=== PATIENT | male | born 1970 | race Caucasian/White ===

== ENCOUNTER 2020-11-19 11:01 | Outpatient (CLI) | payer BC ==
[2020-11-19 19:46] LABS: SARS-CoV-2 PCR by NAA Not Detected (NotDetected)
== END 2020-11-19 11:02 | disposition home or self-care (01) ==
LOC: LABBT 11:01
PROVIDERS: ATTEND Neurological Surgery
DX: Z01.812 Encounter for preprocedural laboratory examination (principal); M43.16 Spondylolisthesis, lumbar region; Z20.822 Contact with and (suspected) exposure to COVID-19
CPT/HCPCS: 87635; U0003; U0005

== ENCOUNTER 2020-11-24 07:03 | Day surgery (SDC) | payer BC ==
[2020-11-20 11:33] VITALS: BMI 24.4
[2020-11-24] MEDS ORDERED: EPINEPHrine 1 MG/ML AMP ONE (08:56)
[2020-11-24] MEDS ORDERED: Bupivacaine PF 0.5% 30 ML VIAL ONE (08:56)
[2020-11-24] MEDS ORDERED: Fentanyl 100 MCG/2 ML VIAL ONE ×3 (08:57→13:55)
[2020-11-24] MEDS ORDERED: HYDROmorphone 0.5 MG/0.5 ML SYRINGE ONE (08:58)
[2020-11-24] MEDS ORDERED: Ketamine 50 MG/ML (10ML VIAL) ONE (08:58)
[2020-11-24] MEDS ORDERED: Midazolam HCl 2 mg/2 ml Vial ONE (09:07)
[2020-11-24] MEDS ORDERED: Rocuronium Bromide 10 MG/ML (10ML VIAL) ONE (09:16)
[2020-11-24] MEDS ORDERED: PHENYLEPHRINE-NS 100 MCG/ML 10 ML SYRINGE ONE ×2 (09:16→11:58)
[2020-11-24] MEDS ORDERED: Metoclopramide HCl 10 MG/2 ML VIAL ONE (09:16)
[2020-11-24] MEDS ORDERED: Ketorolac Tromethamine 30 MG/ML VIAL ONE (09:16)
[2020-11-24] MEDS ORDERED: Ondansetron PF 4 MG/2 ML Vial ONE ×2 (09:16→16:38)
[2020-11-24] MEDS ORDERED: ePHEDrine 50 MG/ML VIAL ONE (09:16)
[2020-11-24] MEDS ORDERED: Lidocaine 1% PF 5 ML VIAL ONE (09:16)
[2020-11-24] MEDS ORDERED: Dexamethasone 20 MG/5 ML VIAL ONE (09:16)
[2020-11-24] MEDS ORDERED: PROPOFOL 200 MG/20 ML VIAL ONE (09:16)
[2020-11-24] MEDS ORDERED: Famotidine/PF 20 mg/2ml Vial ONE (12:04)
[2020-11-24] MEDS ORDERED: SUGAMMADEX SODIUM 200 MG/2 ML VIAL ONE (12:09)
[2020-11-24] MEDS ORDERED: Cyclobenzaprine 10 MG TAB ONE (13:52)
[2020-11-24] MEDS ORDERED: Tamsulosin HCl 0.4 MG CAP ONE (13:55)
[2020-11-24] MEDS ORDERED: HYDROcodone/Acetaminophen 5/325 mg Tablet ONE (17:40)
== END 2020-11-24 19:50 | disposition home or self-care (01) ==
LOC: SDC 07:03
PROVIDERS: ATTEND Neurological Surgery
PROC: 0SG1071 Fusion of 2 or more Lumbar Vertebral Joints with Autologous Tissue Substitute, Posterior Approach, Posterior Column, Open Approach (ICD-10-PCS; principal; 2020-11-24)
DX: M47.26 Other spondylosis with radiculopathy, lumbar region (principal); M48.062 Spinal stenosis, lumbar region with neurogenic claudication; M43.16 Spondylolisthesis, lumbar region; M41.9 Scoliosis, unspecified; Z87.891 Personal history of nicotine dependence; Z79.899 Other long term (current) drug therapy
CPT/HCPCS: 76000; C1713; C1768; J0171; J0690; J1100; J1170; J1885; J2250; J2405; J2704; J2765; J3010; J3490; S0020; S0028